=== PATIENT | male | born 1985 | race Caucasian/White ===

== ENCOUNTER → 2024-02-27 09:00 | Outpatient (BNVA) | payer OTHER, SELFPAY | PROVIDERS: Visit Provider Physician Assistant | DX: R22.31 Localized swelling, mass and lump, right upper limb (principal); M25.841 Other specified joint disorders, right hand | CPT/HCPCS: 99204 ==

== ENCOUNTER 2024-04-09 11:28 | Day surgery (SDC) | payer OTHER, SELFPAY ==
[2024-04-09] VITALS (7 sets, daily range): BP systolic 104–157; BP diastolic 63–98; PULSE 64–89; RESP 14–18; TEMP 36.2–36.6; O2SAT 93–97; BMI 29.1
[2024-04-09] MEDS: scopolamine 1.5 Patch 1 PATCH TRANSDERMA (11:47)
[2024-04-09] MEDS: sodium chloride 0.9% 1,000 ML 30 ML IV (11:47)
[2024-04-09] MEDS: acetaminophen 1,000 MG/100 ML PIGGYBACK 400 MG IV (11:49)
[2024-04-09] MEDS: ketorolac 30 mg/mL INJ IVP (11:49)
--- NOTE | 2024-04-09 12:02 | ANES.PREANE2 ---
Pre-Anesthetic Assessment Height/Weight: Height 1.78 m Weight 92.079 kg O2 Del Method Room Air 04/09/24 12:00 Operation Date: 04/09/24 13:10 Proposed Procedures p right ring finger cyst excision, Right 2nd Metacarpal joint cyst excision, Right 3rd Metacarpal joint cyst excision ,Right 4th Metacarpal joint cyst excision(Right) - Dudley Benzie, DO Familial anesthetic complications: None Was Beta Lam taken within 24 hours: N/A Was Clonidine taken within 24 hours: N/A Last intake: Intake Last Liquid Date 04/09/24 Last Liquid Time 10:00 Last Solid Date 04/08/24 Last Solid Time 18:00 Social No alcohol and No tobacco Exam alert, oriented x 3, clear to auscultation bilaterally and regular rate & rhythm Airway Mallampati: Class III Dentition: chipped Neuropsych Anxiety and Depression Anesthetic Plan ASA status: 2 Anesthesia: Choice Risk of > 500 ml blood loss (7ml/kg in children): No Medications/Allergies Home Medications Medication Instructions Recorded Confirmed Last Taken Type atorvastatin 10 mg tablet 10 mg PO DAILY 02/27/24 04/08/24 04/08/24 History celecoxib 200 mg capsule 200 mg PO DAILY 02/27/24 04/08/24 04/02/24 History venlafaxine 50 mg tablet 50 mg PO DAILY 02/27/24 04/08/24 04/08/24 History methylprednisolone 4 mg tablets in 4 mg PO DAILY 04/08/24 04/08/24 04/08/24 History a dose pack ondansetron 4 mg disintegrating 4 mg PO Q8H PRN nausea and 04/09/24 Unknown Rx tablet vomiting 3 days #9 tabs tramadol 50 mg tablet 50 mg PO Q6H PRN pain #20 tabs 04/09/24 Unknown Rx Allergies Allergy/AdvReac Type Severity Reaction Status Date / Time vinyl Allergy ALGY-Bliste Uncoded 04/09/24 11:41 r Current Medications Generic Name Dose Route Start Last Admin Trade Name Freq PRN Reason Stop Dose Admin Sodium Chloride 1,000 mls @ 30 mls/hr 04/09/24 11:30 04/09/24 11:47 Sodium Chloride 0.9% IV 04/10/24 11:29 30 mls/hr .Q24H MAYNOR Administration PFSH Anesthesia Social History Smoking and tobacco/nicotine status: former use of tobacco/nicotine Data Anesthesia Cardiac Studies: No Data to Display
--- NOTE | 2024-04-09 12:16 | P.HP_ITS ---
Same Day Surgery H&P Indication for Procedure/HPI DATE OF PROCEDURE: April 09, 2024 CHIEF COMPLAINT/INDICATIONFOR SURGICAL PROCEDURE: Right index finger cyst, right second metacarpal dorsal hand cyst, right middle finger dorsal cyst, right fourth metacarpal dorsal cyst PREOP DIAGNOSIS: Right index finger cyst, right second metacarpal dorsal hand cyst, right mi PLANNED PROCEDURE: Operation Date: 04/09/24 13:10 Proposed Procedures p right ring finger cyst excision, Right 2nd Metacarpal joint cyst excision, Right 3rd Metacarpal joint cyst excision ,Right 4th Metacarpal joint cyst excision(Right) - Dudley Valencia, Medications/Allergies* Home Medications Medication Instructions Recorded Confirmed Type atorvastatin 10 mg tablet 10 mg PO DAILY 02/27/24 04/08/24 History celecoxib 200 mg capsule 200 mg PO DAILY 02/27/24 04/08/24 History venlafaxine 50 mg tablet 50 mg PO DAILY 02/27/24 04/08/24 History methylprednisolone 4 mg tablets in 4 mg PO DAILY 04/08/24 04/08/24 History a dose pack Allergies/Adverse Reactions Allergy/AdvReac Type Severity Reaction Status Date / Time vinyl Allergy ALGY-Bliste Uncoded 04/09/24 11:41 r Current Medications: Generic Name Dose Route Start Last Admin Trade Name Freq PRN Reason Stop Dose Admin Sodium Chloride 1,000 mls @ 30 mls/hr 04/09/24 11:30 04/09/24 11:47 Sodium Chloride 0.9% IV 04/10/24 11:29 30 mls/hr .Q24H MAYNOR Administration Pertinent History/Comorbid Conditions* Social History Smoking and tobacco/nicotine status: former use of tobacco/nicotine Pertinent Exam Findings alert, oriented x 3, operative site marked and procedure specific exam findings Orthopedic examination: Patient has palpable cyst on the right index finger over the dorsal aspect of the P1 as well as cyst over the second metacarpal dorsal hand as well as a dorsal cyst over P1 of the right middle finger and then a dorsal hand fourth metacarpal cyst. These are all tender to palpation. Recommendations Surgery/Procedure today Other Plans: Plan to proceed to the OR today for right index finger cyst excision, right second metacarpal dorsal hand cyst excision, right middle finger dorsal cyst ex cision, right fourth metacarpal dorsal hand cyst excision. Patient understands the ins and outs procedure the risk benefits complication alternatives of surgery and through shared decision patient elects to proceed with surgical invention all questions answered this time I had patient as well as myself we circled each individual cyst that he was concerned and that we would address today which are as stated above. Patient understands agrees with current plan. Questions answered. Coding Level of Care Code Acute Code for Chg Fwabner
[2024-04-09] MEDS: ceFAZolin 2,000 MG in sodium chloride 0.9% (plus) 50 ML 100 MG IV (13:47)
[2024-04-09] MEDS: lidocaine 1% INJ 10 mL (per mL) INJECTION (14:30)
[2024-04-09] MEDS: ROPivacaine 0.5% SDV 30 mL 25 MG INJECTION (14:31)
--- NOTE | 2024-04-09 15:16 | W.PM.BPON ---
Date of Procedure: 04/09/2024 Surgeon: Dudley Valencia DO Regional Engagement Consultant(s): None Procedure(s) performed: Right index finger mass excision (1 cm x 1 cm x 0.5 cm) Right second metacarpal dorsal hand mass excision (1 cm x 0.5 cm x 0.5 cm) Right middle finger dorsal mass excision (0.5 cm x 0.5 cm x 0.5 cm) Right fourth metacarpal dorsal mass excision (0.5 cm x 0.5 cm x 0.5 cm) Findings of the procedure(s): Patient had 4 masses on the extensor tendons of the index at the P1 level as well as the second metacarpal just proximal to the MP joint as well as the P1 of the middle finger and over the dorsal aspect of the fourth metacarpal. These all crystalline deposit masses consistent with gout crystal deposits. These were all excised and sent for pathology. Given we had a longitudinally split the tendon to ellipse out these gout deposits I subsequently closed deeply the tendon with Monocryl suture and will have him be nonweightbearing and placed him in a volar splint while he heals. Patient understands and agrees with current plan. Questions answered. Follow-up in 2 weeks. Estimated blood loss: 5 mL Specimen(s) removed: Right index finger mass, right second metacarpal dorsal hand mass, right middle finger dorsal mass, right fourth metacarpal dorsal hand mass excision all sent for pathology Post-operative diagnosis: Multiple gouty deposits throughout the right hand
--- NOTE | 2024-04-09 15:22 | P.OP_ITS ---
Operative Report Date of procedure: April 09, 2024 Surgeon: Dudley Valencia DO Procedure: Preoperative diagnosis: Right index finger mass cyst Right second metacarpal dorsal hand cyst Right middle finger dorsal cyst Right fourth metacarpal dorsal cyst Postoperative diagnosis Right hand index finger gout deposit, right second metacarpal dorsal hand gout deposit, right middle finger dorsal gout deposit, right fourth metacarpal dorsal gout deposit Procedure Right index finger mass excision (1 cm x 1 cm x 0.5 cm) Right second metacarpal dorsal hand mass excision (1 cm x 0.5 cm x 0.5 cm) Right middle finger dorsal mass excision (0.5 cm x 0.5 cm x 0.5 cm) Right fourth metacarpal dorsal mass excision (0.5 cm x 0.5 cm x 0.5 cm) Specimens removed/disposition: Right hand index finger gout deposit, right second metacarpal dorsal hand gout deposit, right middle finger dorsal gout deposit, right fourth metacarpal dorsal gout deposit All are sent for final pathology Surgeon: Dudley Valencia DO Estimated blood loss: 5mL Tourniquet time 21 minutes IV fluids: See anesthesia record Complications: None Findings: See operative report narrative Condition: stable Disposition: same day Brief History: Patient's been worked up in the outpatient setting and findings consistent with preoperative diagnosis.? Patient has a hand and finger multiple masses/cysts. Right index finger mass cyst Right second metacarpal dorsal hand cyst, Right middle finger dorsal cyst, Right fourth metacarpal dorsal cyst.? Patient has attempted conservative treatment and this has become significantly painful.? We talked about treatment options as far as nonoperative and operative intervention.? At this point time patient like a more permanent solution in the lowest chance of recurrence and as result through shared decision making we agreed to proceed with a Right index finger cyst, right second metacarpal dorsal hand cyst, right middle finger dorsal cyst, right fourth metacarpal dorsal cyst excsions.? Patient understands risk benefits complication alternatives surgical nonsurgical treatment options.? Understanding risk of surgery patient agrees to proceed.? All questions answered.? Consent obtained in the office. Procedure: Patient seen evaluate in the preoperative holding area.? Consent was signed and reviewed with patient.? All questions were answered at that time.? Correct extremity was then marked.? Once seen evaluated by anesthesia patient was then brought back to the operative suite.? Patient was then placed in supine position all bony prominences well-padded patient was properly secured to the bed.? An armboard was then applied for the right upper extremity.? A nonsterile tourniquet was applied to the right upper extremity arm.? Patient then underwent anesthesia per the anesthesia department.? Once appropriately anesthetized the right upper extremity was then prepped and draped in standard orthopedic fashion.? Final timeout performed.? Patient received appropriate preoperative antibiotics. Under sterile aseptic technique I began with local anesthetic for my preplanned surgical sites.? Then I utilized an [place]sm[place] tourniquet to exsanguinate the right upper extremity to 250 mmHg I started off by addressing the right index finger dorsal mass/cyst and right second metacarpal dorsal hand mass/cyst made this curvilinear incision centering over the distal 1 over the P1 and then over the MP joint on the dorsal hand of the second metacarpal curvilinear incision made through skin only I then switched to [place] dissection scissors and mobilized the tissue off of the tendon immediately encountered the dorsal right index finger over P1 embedded on top of the tendon was significant white crystalline deposit consistent with gout I then utilized a [place] blade to mobilize the entire gout off of the index finger extensor tendon with care not to injure the tendon. This was then sent for pathology and removed to its entirety. Next I then mobilized over the dorsal aspect of the MP joint this was proximal to sagittal band with another prominent crystalline deposit over the extensor tendon mechanism utilized [place] blade once again and pickups and removed the dorsal second metacarpal mass to its entirety which again looked like gout crystalline deposits this was dissected off of the extensor tendon. Once this was removed I then palpated and no palpable crystalline deposits or prominences were appreciated and then thoroughly irrigated moved onto the next mass excisions. Next I then made a small incision directly over the right middle finger dorsal aspect near the P1 sharp scalpel incision was made through skin only switch to Littler dissection scissors and once again a crystalline deposit was made over the radial half of the extensor tendon mechanism this I did have to split longitudinally around the tendon just to ellipse is much as possible of the gouty crystalline deposit. This was ellipsed out to its entirety and sent for pathology I then thoroughly irrigated this and then closed the split of the tendon with 3-0 Monocryl suture. Next and finally I then focused my attention towards the right fourth metacarpal dorsal hand mass. Sharp scalpel incision was made through skin strip longitudinally over the prominence. I then used switch to Littler dissection scissors identified and protected cutaneous nerve branches came directly over the extensor tendon where again at the bifurcation to the middle and ring finger there was a juncturae tendon dated between this was the gouty crystalline deposit I then subsequently utilized the [place] blade once again to ellipse out the gouty crystalline deposit and with sharp scalpel excision to its entirety with care to not injure the tendons. I then palpated and there is no further gouty crystalline deposits. This was again sent for pathology as well. All for the masses did appear to be of gout crystalline deposit. There excised in their entirety given I had to dissect in and around the tendon at multiple of these locations I then thoroughly irrigated the wound bed. Tourniquet was deflated.? Hemostasis was satisfactory with bipolar electrocautery.? I then closed the incision in layered fashion with horizontal mattress nylon stitch for skin.? Xeroform over the incisions 4 x 4's ABD soft roll and a volar splint was applied given multiple dissections were made around the extensor tendon. Will keep him nonweightbearing for 6 weeks. Patient was then awakened from anesthesia and taken back in stable condition. Disposition: Patient taken back in stable condition recovering well.? Patient will receive appropriate discharge instructions as well as pain medication postoperatively.? Patient placed in a volar splint.? We will follow-up with in the orthopedic office in 2 weeks.? Will follow-up on pathology results, will plan to keep in splint for 2 weeks likely transition to wrist brace but be n onweightbearing for roughly 6 weeks. Patient understands of any questions or concerns and contact the office.
--- NOTE | 2024-04-09 15:50 | ANE.PACU2 ---
Inpatient post-anesthesia follow up: Airway intact: Yes Vital signs: Temperature 98 F Pulse Rate 72 Respiratory Rate 17 Blood Pressure 118/80 Pulse Oximetry 95 Oxygen Delivery Me thod Room Air Oxygen Flow Rate Fraction of Inspir ed Oxygen Hydration adequate: Yes Nausea and vomiting: No Pain level: 1 Mental status: Baseline
== END 2024-04-09 15:50 | disposition home or self-care (01) ==
PROVIDERS: PCP Nurse Practitioner; Visit Provider Student in an Organized Health Care Education/Training Program
PROC: (CPT 26160; principal; 2024-04-09 13:10)
DX: L72.0 Epidermal cyst (principal); Z87.891 Personal history of nicotine dependence
CPT/HCPCS: 26160 ×4; 88304; 88312; J0131; J0690; J1885; J2250; J2704; J2795; J3010; J7030

== ENCOUNTER → 2024-04-24 13:32 | Outpatient (BNVA) | payer OTHER, SELFPAY | PROVIDERS: PCP Nurse Practitioner; Visit Provider Physician Assistant | DX: Z98.890 Other specified postprocedural states (principal) | CPT/HCPCS: 99024 ==